=== PATIENT | male | born 1950 | race American Indian/Alaskan Native ===

== ENCOUNTER 2019-02-21 19:56 | Emergency (ER) | payer SELFPAY ==
--- NOTE | 2019-02-21 20:11 | Event Note ---
ED Screening Note Date of service: 02/21/19 Time: 20:09 ED Screening Note: 68 y o male sent by PCP fro gen weakness and abnormal ekg pt cc of mild headache and weakness This initial assessment/diagnostic orders/clinical plan/treatment(s) is/are subject to change based on patients health status, clinical progression and re- assessment by fellow clinical providers in the ED. Further treatment and workup at subsequent clinical providers discretion. Patient/guardian urged not to elope from the ED as their condition may be serious if not clinically assessed and managed. Initial orders include: labs,ekg repeat, main eval
[2019-02-21 21:03] LABS: Basophils % (Auto) 0.3 % (0.0-1.8); Eosinophils # (Auto) 0.1 K/mm3 (0.0-0.4); Eosinophils % (Auto) 1.3 % (0.0-4.3); Hematocrit 35.2 % (35.5-45.6); Hemoglobin 11.6 gm/dl (11.8-15.2); Lymphocytes # (Auto) 1.3 K/mm3 (1.2-5.4); Lymphocytes % (Auto) 30.5 % (13.4-35.0); Mean Corpuscular HGB Conc 33 % (32-34); Mean Corpuscular Volume 88 fl (84-94); Monocytes # (Auto) 0.2 K/mm3 (0.0-0.8); Monocytes % (Auto) 5.2 % (0.0-7.3); Platelet Count 210 K/mm3 (140-440); Red Blood Count 4.02 M/mm3 (3.65-5.03)
[2019-02-21 21:12] LABS: INR 0.93 (0.87-1.13)
[2019-02-21 21:17] LABS: BUN/Creatinine Ratio 18; Blood Urea Nitrogen 23 mg/dL (9-20); Calcium 8.7 mg/dL (8.4-10.2); Hemolysis Index 11
[2019-02-22] MEDS ORDERED: SODIUM CHLORIDE 0.9% 1000 ML 1,000 ML IV ONE (00:14)
[2019-02-22] MEDS ORDERED: INSULIN REGULAR, HUMAN 100 UNITS/1 ML IV ONE (00:14)
--- NOTE | 2019-02-22 00:42 | XRay Report ---
CHEST 2 VIEWS INDICATION / CLINICAL INFORMATION: Dyspnea, tired with exertion. COMPARISON: None available. FINDINGS: SUPPORT DEVICES: None. HEART / MEDIASTINUM: No significant abnormality. LUNGS / PLEURA: No significant pulmonary or pleural abnormality. No pneumothorax. ADDITIONAL FINDINGS: No significant additional findings. IMPRESSION: 1. No acute findings. Signer Name: Geraldo Moss MD Signed: 02/22/2019 12:38 AM Workstation Name: [id number]
--- NOTE | 2019-02-22 01:26 | Emergency Department Report ---
- General Chief complaint: Weakness Stated complaint: SOB Time Seen by Provider: 02/21/19 20:08 Source: patient Mode of arrival: Wheelchair Limitations: No Limitations - History of Present Illness Initial comments: 68-year-old male with a past medical history hypertension, diabetes, and hyperlipidemia presents to the hospital complaining of increased fatigue with exertion for 2 weeks. Patient also had a worsening lightheadedness symptoms. Patient denies shortness of breath but describes sensation as a tired feeling and decreased exercise tolerance. Druing this time patient states he has been cutting out sugar, carbs, and trying to exercise more. Patient denies cough, chest pain, headache, abdominal pain, nausea, vomiting, diarrhea, melena, hematochezia, fever, calf tenderness, leg edema, recent travel, or history of PE/DVT. Patient came from PMDs office with request for ED workup. EKGs provided by office reviewed. Patient reports he had a unremarkable stress test 5-6 months ago and also saw a children's author as an outpatient PMD Dr. Hood sent pt to ed for eval - Related Data Home Medications Medication Instructions Recorded Confirmed Last Taken Aspirin [Aspirin BABY CHEW TAB] 81 mg PO QDAY 08/20/15 08/20/15 08/19/15 Insulin Glargine,Hum.rec.anlog 50 units SQ QHS 08/20/15 08/20/15 08/19/15 [Lantus Solostar] Lisinopril [Zestril TAB] 40 mg PO QDAY 08/20/15 08/20/15 08/19/15 Lovastatin [Altoprev] 40 mg PO QDAY 08/20/15 08/20/15 08/19/15 glipiZIDE [glipiZIDE XL] 10 mg PO QDAY 08/20/15 08/20/15 08/19/15 Previous Rx's Medication Instructions Recorded Last Taken Type Promethazine [Phenergan TAB] 25 mg PO Q6HR PRN #20 tab 08/21/15 Unknown Rx Allergies Allergy/AdvReac Type Severity Reaction Status Date / Time No Known Allergies Allergy Unverified 05/13/15 11:16 ED Review of Systems ROS: Stated complaint: SOB Other details as noted in HPI ED Past Medical Hx - Past Medical History Previous Medical History?: Yes Hx Hypertension: Yes Hx Diabetes: Yes Additional medical history: chol - Surgical History Past Surgical History?: No - Social History Smoking Status: Never Smoker Substance Use Type: None - Medications Home Medications: Home Medications Medication Instructions Recorded Confirmed Last Taken Type Aspirin [Aspirin BABY CHEW TAB] 81 mg PO QDAY 08/20/15 08/20/15 08/19/15 History Insulin Glargine,Hum.rec.anlog 50 units SQ QHS 08/20/15 08/20/15 08/19/15 History [Lantus Solostar] Lisinopril [Zestril TAB] 40 mg PO QDAY 08/20/15 08/20/15 08/19/15 History Lovastatin [Altoprev] 40 mg PO QDAY 08/20/15 08/20/15 08/19/15 History glipiZIDE [glipiZIDE XL] 10 mg PO QDAY 08/20/15 08/20/15 08/19/15 History Promethazine [Phenergan TAB] 25 mg PO Q6HR PRN #20 tab 08/21/15 Unknown Rx ED Physical Exam - General Limitations: No Limitations ED Course Vital Signs 02/21/19 02/22/19 02/22/19 20:07 00:01 00:15 Temperature 97.6 F Pulse Rate 91 H 78 Respiratory 20 18 Rate Blood Pressure 110/60 120/66 134/66 O2 Sat by Pulse 97 97 Oximetry 02/22/19 02/22/19 02/22/19 00:31 00:45 01:00 Temperature Pulse Rate Respiratory Rate Blood Pressure 134/66 138/71 134/68 O2 Sat by Pulse 100 97 97 Oximetry 02/22/19 02/22/19 02/22/19 01:15 01:30 01:45 Temperature Pulse Rate 76 78 75 Respiratory 16 15 14 Rate Blood Pressure 136/67 137/66 138/67 O2 Sat by Pulse 98 95 96 Oximetry 02/22/19 02/22/19 02/22/19 02:00 02:15 02:30 Temperature Pulse Rate 76 77 77 Respiratory 15 13 15 Rate Blood Pressure 133/67 143/69 144/74 O2 Sat by Pulse 96 96 96 Oximetry ED Medical Decision Making - Lab Data Result diagrams: 02/21/19 20:46 02/21/19 20:46 Lab Results 10/08/19 10/08/19 10/08/19 Range/Units 20:46 20:46 20:46 WBC 4.3 L (4.5-11.0) K/mm3 RBC 4.02 (3.65-5.03) M/mm3 Hgb 11.6 L (11.8-15.2) gm/dl Hct 35.2 L (35.5-45.6) % MCV 88 (84-94) fl MCH 29 (28-32) pg MCHC 33 (32-34) % RDW 13.0 L (13.2-15.2) % Plt Count 210 (140-440) K/mm3 Lymph % (Auto) 30.5 (13.4-35.0) % [place] % (Auto) 5.2 (0.0-7.3) % Eos % (Auto) 1.3 (0.0-4.3) % Baso % (Auto) 0.3 (0.0-1.8) % Lymph # 1.3 (1.2-5.4) K/mm3 [place] # 0.2 (0.0-0.8) K/mm3 Eos # 0.1 (0.0-0.4) K/mm3 Baso # 0.0 (0.0-0.1) K/mm3 Seg Neutrophils % 62.7 (40.0-70.0) % Seg Neutrophils # 2.7 (1.8-7.7) K/mm3 PT 12.2 (12.2-14.9) Sec. INR 0.93 (0.87-1.13) D-Dimer (0-234) ng/mlDDU Sodium 130 L (137-145) mmol/L Potassium 4.1 (3.6-5.0) mmol/L Chloride 95.8 L (98-107) mmol/L Carbon Dioxide 23 (22-30) mmol/L Anion Gap 15 mmol/L BUN 23 H (9-20) mg/dL Creatinine 1.3 (0.8-1.5) mg/dL Estimated GFR > 60 ml/min BUN/Creatinine Ratio 18 % Glucose 335 H (75-100) mg/dL POC Glucose (70-105) Calcium 8.7 (8.4-10.2) mg/dL Total Creatine Kinase (55-170) units/L Troponin T (0.00-0.029) ng/mL TSH (0.270-4.200) mlU/mL Free T4 (0.76-1.46) ng/dL 02/21/19 02/22/19 02/22/19 Range/Units 20:46 00:33 00:33 WBC (4.5-11.0) K/mm3 RBC (3.65-5.03) M/mm3 Hgb (11.8-15.2) gm/dl Hct (35.5-45.6) % MCV (84-94) fl MCH (28-32) pg MCHC (32-34) % RDW (13.2-15.2) % Plt Count (140-440) K/mm3 Lymph % (Auto) (13.4-35.0) % [place] % (Auto) (0.0-7.3) % Eos % (Auto) (0.0-4.3) % Baso % (Auto) (0.0-1.8) % Lymph # (1.2-5.4) K/mm3 [place] # (0.0-0.8) K/mm3 Eos # (0.0-0.4) K/mm3 Baso # (0.0-0.1) K/mm3 Seg Neutrophils % (40.0-70.0) % Seg Neutrophils # (1.8-7.7) K/mm3 PT (12.2-14.9) Sec. INR (0.87-1.13) D-Dimer (0-234) ng/mlDDU Sodium (137-145) mmol/L Potassium (3.6-5.0) mmol/L Chloride (98-107) mmol/L Carbon Dioxide (22-30) mmol/L Anion Gap mmol/L BUN (9-20) mg/dL Creatinine (0.8-1.5) mg/dL Estimated GFR ml/min BUN/Creatinine Ratio % Glucose (75-100) mg/dL POC Glucose (70-105) Calcium (8.4-10.2) mg/dL Total Creatine Kinase 85 (55-170) units/L Troponin T < 0.010 < 0.010 (0.00-0.029) ng/mL TSH 4.710 H (0.270-4.200) mlU/mL Free T4 1.16 (0.76-1.46) ng/dL 02/22/19 02/22/19 Range/Units 01:04 20:46 WBC (4.5-11.0) K/mm3 RBC (3.65-5.03) M/mm3 Hgb (11.8-15.2) gm/dl Hct (35.5-45.6) % MCV (84-94) fl MCH (28-32) pg MCHC (32-34) % RDW (13.2-15.2) % Plt Count (140-440) K/mm3 Lymph % (Auto) (13.4-35.0) % [place] % (Auto) (0.0-7.3) % Eos % (Auto) (0.0-4.3) % Baso % (Auto) (0.0-1.8) % Lymph # (1.2-5.4) K/mm3 [place] # (0.0-0.8) K/mm3 Eos # (0.0-0.4) K/mm3 Baso # (0.0-0.1) K/mm3 Seg Neutrophils % (40.0-70.0) % Seg Neutrophils # (1.8-7.7) K/mm3 PT (12.2-14.9) Sec. INR (0.87-1.13) D-Dimer 178.74 (0-234) ng/mlDDU Sodium (137-145) mmol/L Potassium (3.6-5.0) mmol/L Chloride (98-107) mmol/L Carbon Dioxide (22-30) mmol/L Anion Gap mmol/L BUN (9-20) mg/dL Creatinine (0.8-1.5) mg/dL Estimated GFR ml/min BUN/Creatinine Ratio % Glucose (75-100) mg/dL POC Glucose 269 H (70-105) Calcium (8.4-10.2) mg/dL Total Creatine Kinase (55-170) units/L Troponin T (0.00-0.029) ng/mL TSH (0.270-4.200) mlU/mL Free T4 (0.76-1.46) ng/dL - EKG Data -: EKG Interpreted by Fl EKG shows normal: sinus rhythm, ST-T waves (no stemi, lat t wave inv) - EKG Data When compared to previous EKG there are: no significant change - Radiology Data Radiology results: report reviewed cxr: naf - Medical Decision Making Patient ED workup unremarkable. D-dimer negative with wells pe score [address] angiogram not indicated. Specifically significant pericardial effusion given the lack of significantly decreased voltage, electrical al ternans, or cardiomegaly on x-ray. Patient reports negative stress test within the last 5-6 months. Patient has unchanged EKG compared to previous ones provided by PMD and negative troponin 2. After receiving 1 L normal saline and insulin for hyperglycemia patient reports feeling much better. He M laid in the ED without difficulty. Will discharged home to follow-up with PMD. Apnea lasting chest x-ray will be provided for PMD follow-up. - Differential Diagnosis dehydration, CAD, pe, thryoid dz, pericardial effusion Critical Care Time: No Critical care attestation.: If time is entered above; I have spent that time in minutes in the direct care of this critically ill patient, excluding procedure time. ED Disposition Clinical Impression: Fatigue, Hyperglycemia, Dehydration Disposition: DC-01 TO HOME OR SELFCARE Is pt being admited?: No Does the pt Need Aspirin: No Condition: Stable Instructions: Diabetic Hyperglycemia (ED), Dehydration (ED) Additional Instructions: Follow-up with your doctor or with the doctor/clinic provided. Return if symptoms worsen as indicated by your discharge instructions. You have been provided a copy of the labs and imaging results today to take to your doctor for follow-up. Referrals: PRIMARY CARE, [Primary Care Provider] - 2-3 Days Time of Disposition: 03:06
[2019-02-22 01:56] LABS: Free T4 (Free Thyroxine) 1.16 ng/dL (0.76-1.46)
[2019-02-22 02:57] VITALS: BP 144/74
[2019-02-22 03:21] LABS: Bacteria,Urine 1+ /HPF (Negative); Bilirubin,Urine NEG (Negative); Blood,Urine NEG (Negative); Color,Urine Yellow (Yellow); Mucus,Urine FEW /HPF; Protein,Urine <15 mg/dL mg/dL (Negative); Urobilinogen,Urine < 2.0 mg/dL (<2.0)
== END 2019-02-22 03:00 | disposition home or self-care (01) ==
LOC: ED 19:56
DX: E11.65 Type 2 diabetes mellitus with hyperglycemia (principal); I10 Essential (primary) hypertension; E78.00 Pure hypercholesterolemia, unspecified; Z79.899 Other long term (current) drug therapy
CPT/HCPCS: 36415; 71046; 80048; 81001; 82550; 82962; 84439; 84443; 84484; 85025; 85379; 85610; 93005; 93010; 96361; 96374; 99284; J7030; J1815